=== PATIENT | male | born 1980 | race Caucasian/White ===

== ENCOUNTER 2021-01-11 13:32 | Observation (INO) | payer SELFPAY ==
[2021-01-11 14:51] VITALS: BP 122/89; PULSE 103; RESP 16; TEMP 37.2; O2SAT 96; BMI 22.2
[2021-01-11 15:10] LABS: Basophils % 0.2 %; Eosinophils % 0.2 %; Hematocrit 51.1 % (42.0-52.0); Hemoglobin 18.8 g/dL (11.7-16.6); Lymphocytes # 2.3 10^3/uL (0.8-4.8); Lymphocytes % 14.2 %; Mean Corpuscular HGB Conc 36.8 g/dL (30.0-36.0); Mean Corpuscular Volume 87.1 fL (80-94); Mean Platelet Volume 9.8 fL (7.4-10.4); Monocytes # 1.9 10^3/uL (0.2-0.9); Monocytes % 11.7 %; Neutrophils # 11.94 10^3/uL (1.8-7.7); Neutrophils % 73.5 %; Nucleated Red Blood Cells % 0 %; Platelet Count 316 10^3/cmm (130-400); Red Blood Count 5.87 10^6/uL (4.1-5.3); Red Cell Distribution Width 12.5 % (12.1-15.1); White Blood Count 16.3 10^3/uL (4.0-10.0)
[2021-01-11 15:24] LABS: Alanine Aminotransferase 14 U/L (0-41); Albumin Level 5.1 g/dL (3.5-5.2); Alkaline Phosphatase 94 IU/L (40-130); Anion Gap 16.9 (5-19); Aspartate Amino Transferase 12 U/L (0-40); Blood Urea Nitrogen 20 mg/dL (6-20); Calcium 9.8 mg/dL (8.5-10.5); Carbon Dioxide 32 mmol/L (22-29); Chloride 82 mmol/L (98-107); Glomerular Filtration Rate 94.4 mL/min (90-130); Glucose 110 mg/dL (65-115); Osmolality Calculated 269 mOsm/kg (285-295); Sodium 128 mmol/L (136-145); Total Bilirubin 0.9 mg/dL (0.15-1.2); Total Protein 8.1 g/dL (6.6-8.7)
[2021-01-11 15:25] LABS: Lactic Sepsis W/Reflex 1.2 mmol/L (0.5-2.2)
[2021-01-11 15:31] LABS: Potassium 2.9 mmol/L (3.5-5.1)
[2021-01-11 16:01] LABS: Magnesium 2.4 mg/dL (1.7-2.3)
--- NOTE | 2021-01-11 16:37 | CTR_ITS ---
PROCEDURE INFORMATION: Exam: CT Abdomen And Pelvis With Contrast Exam date and time: 01/11/2021 5:08 PM Age: 40 years old Clinical indication: Nausea and vomiting; Abdominal pain; Prior surgery; Surgery type: Gb, appy; Additional info: Abd pain TECHNIQUE: Imaging protocol: Computed tomography of the abdomen and pelvis with contrast. Radiation optimization: All CT scans at this facility use at least one of these dose optimization techniques: automated exposure control; mA and/or kV adjustment per patient size (includes targeted exams where dose is matched to clinical indication); or iterative reconstruction. Contrast material: OMNI 300; Contrast volume: 95 ml; Contrast route: INTRAVENOUS (IV); COMPARISON: No relevant prior studies available. RADIATION DOSE METRICS: Total DLP (mGy-cm): 922.29 FINDINGS: Lungs: The lung bases appear unremarkable. Liver: The liver is unremarkable in appearance. Gallbladder and bile ducts: The gallbladder is surgically absent. No biliary dilatation. Pancreas: The pancreas is normal in appearance. No pancreatic duct dilatation. Spleen: Calcified granulomas are noted in the spleen. Adrenal glands: Unremarkable. No mass. Kidneys and ureters: 7 mm simple appearing cyst upper pole right kidney. No solid renal masses. No hydronephrosis. Stomach and bowel: No acute gastric abnormality demonstrated. There are several fluid-filled small bowel loops in the lower abdomen/pelvis with mucosal enhancement and slight stranding of the adjacent mesenteric fat. This suggests mild nonspecific enteritis. No bowel obstruction noted. No acute abnormality/inflammatory change of the colon. Appendix: Patient is status post appendectomy by history. Intraperitoneal space: No pneumoperitoneum. No significant fluid collection. Vasculature: The aorta is unremarkable as demonstrated. Lymph nodes: No pathologically enlarged lymph nodes are demonstrated. Urinary bladder: Urinary bladder is unremarkable as demonstrated. Reproductive: Unremarkable as visualized. Bones/joints: No fracture or other acute osseous abnormality. Soft tissues: The soft tissues appear unremarkable. CT/CT abdomen pelvis w con* [id number] IMPRESSION: 1. There are several fluid-filled small bowel loops in the lower abdomen/pelvis with mucosal enhancement and slight stranding of the adjacent mesenteric fat. This suggests mild nonspecific enteritis. No bowel obstruction noted. 2. No acute abnormality demonstrated of the solid organs. COMMENTS: Consistent with the [employer] [place] [employer]'s Incidental Findings Committee white paper (J Am Bessie Radiol 2018): Any incidental renal lesion less than 1 cm or classified as too small to characterize, or any incidental cystic renal lesion characterized as simple-appearing, is likely benign. No follow-up imaging is recommended for these lesions per consensus recommendations based on imaging criteria. Radiation Dose CTDIVOL = (mGy): DLP = 922.29 (mGy-cm)
--- NOTE | 2021-01-11 16:38 | ED_ITS ---
HPI - Abdominal Pain General: Chief Complaint: Abdominal Pain Stated Complaint: VOMITING, NO APPETITE, LETHARGIC Time Seen by Provider: 01/11/21 16:34 History of Present Illness: HPI narrative: This patient is a 40-year-old male states he lives in [place] presents to the emergency department complaining of mid abdominal pain. 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 Patient states he was last in the emergency department 1 month ago due to the pain did up having infection in his colon and had to get IV antibiotics. Patient states this has been going on for 2 to 3 days and having vomiting for 2 to 3 days. We will do medical evaluation treat as needed. MD elicited complaint: abdominal pain Associated Symptoms: Reports nausea and vomiting; Denies chills, dysuria and fever(s) Review of Systems General: Reports: 10 or more systems reviewed and unremarkable except in HPI and below Const: Denies: fever(s), chills, body aches or fatigue Eyes: Denies: change in vision or blurry vision ENMT: Denies: throat pain, hoarseness or mouth pain Card: Denies: chest pain, palpitations, irregular heart rhythm, edema, swelling of feet/ankles or lightheadedness Resp: Denies: dyspnea, productive cough, non-productive cough, wheezing or pain on inspiration GI: Reports: abdominal pain, nausea and vomiting : Denies: flank pain, dysuria, urinary frequency, urinary urgency or urinary hesitancy Musc: Denies: neck pain, back pain, extremity pain, extremity swelling, joint pain, joint swelling, joint redness, joint warmth or limited range of motion Skin/Breast: Denies: rash, pruritus, erythema or skin tenderness Neuro: Denies: headache(s), numbness in extremities or weakness in extremities Psych: Denies: anxiety or depression Physical Exam Const: COMMON NORMALS: no acute distress, average body habitus, patient oriented x3, no limitations, healthy appearing, alert and well nourished HENMT: COMMON NORMALS: normocephalic, atraumatic, hearing grossly normal bilaterally, external ears normal, EAC's normal, TM's normal bilaterally, Normal external nose present, Normal nasal mucous membranes and turbinates present, moist oral mucous membranes, oropharynx normal, dentition normal and gingiva normal HEAD & SCALP: normocephalic and atraumatic NOSE: Normal external nose present and Normal nasal mucous membranes and turbinates present EXTERNAL EAR: Yes external ears normal EXTERNAL AUDITORY CANAL: EAC's normal TYMPANIC MEMBRANE: TM's normal bilaterally Neck/C-Spine: COMMON NORMALS: full ROM, no lymphadenopathy, supple, no meningeal signs, no JVD, Thyroid normal and No carotid bruits THYROID: Thyroid normal Chest: COMMONS NORMALS: normal inspection of the chest, normal palpation of entire chest wall, normal inspection of the breasts and normal palpation of the breasts Breast/axilla inspection: Yes normal inspection of the breasts BREAST/AXILLA PALPATION: Yes normal palpation of the breasts Resp: COMMON NORMALS: normal respiratory effort, No retractions, No use of accessory muscles, clear to auscultation bilaterally and percussion normal AUSCULTATION: clear to auscultation bilaterally PERCUSSION: percussion normal Cardio: COMMON NORMALS: no JVD, regular rate, regular rhythm, S1 normal heart sound present, S2 normal heart sound present, No gallops present (Cardio), No clicks present (Cardio), No murmurs present (Cardio), No rub (Cardio) and Peripheral pulses 2+ throughout RATE: regular rate RHYTHM: regular rhythm HEART SOUNDS: S1 normal heart sound present and S2 normal heart sound present PERIPHERAL PULSES: Peripheral pulses 2+ throughout GI: COMMON NORMALS: Normal to inspection, nondistended, normoactive bowel sounds present, Soft to palpation, No hepatosplenomegaly present, no masses and no bruits PALPATION: Yes Soft to palpation, Yes Tenderness to palpation present (GI) and Yes No hepatosplenomegaly present : COMMON NORMALS: Yes no CVA tenderness BLADDER/KIDNEY EXAM: Yes no CVA tenderness Back/Pelvis: COMMON NORMALS: no CVA tenderness, thoracic and lumbar spine normal to inspection, no thoracic nor lumbar tenderness, thoraco-lumbar ROM normal and straight leg raise negative bilaterally Extremity: COMMON NORMALS: normal to inspection, full ROM, capillary refill normal, no joint enlargement, no clubbing, cyanosis or edema, no calf tenderness and no pedal edema Neuro: COMMON NORMALS: patient oriented x3 SENSORIUM/ORIENTATION: Yes alert MENINGEAL SIGNS: Yes no meningeal signs Course Reevaluation(s): Reevaluation #1: Patient appears to have acute gastro enteritis. Hyponatremia and hypokalemia. Patient will need continued IV fluids. Patient will also get p.o. potassium. Patient be admitted to observation. With IV Flagyl.. Nausea vomiting abdominal pain for the past 3 days. Will contact hospitalist for admission. Time: 17:52 Consultations: Consultation #1: I did discuss at length with Dr. Pickard he is agreeable to admit the patient due to gastroenteritis dehydration abdominal pain hypokalemia and hyponatremia. He will see patient write additional orders. He will follow up on pending urinalysis. Time: 18:02 Vital Signs: Vital signs: Vital Signs Temperature 99.0 F 01/11/21 14:51 Pulse Rate 73 01/11/21 17:27 Respiratory Rate 15 01/11/21 17:27 Blood Pressure 137/85 01/11/21 17:27 Pulse Oximetry 97 01/11/21 17:27 MDM - Abdominal Pain Lab Data: Attestation: I reviewed the patient's lab results. Labs: Lab Results 01/11/21 01/11/21 01/11/21 Range/Units 14:35 14:55 14:55 WBC 16.3 H (4.0-10.0) 10^3/ uL RBC 5.87 H (4.1-5.3) 10^6/u L Hgb 18.8 H (11.7-16.6) g/dL Hct 51.1 (42.0-52.0) % MCV 87.1 (80-94) fL MCH 32.0 (28.0-34.0) pg MCHC 36.8 H (30.0-36.0) g/dL RDW 12.5 (12.1-15.1) % Plt Count 316 (130-400) 10^3/c mm MPV 9.8 (7.4-10.4) fL Neut % (Auto) 73.5 % Lymph % (Auto) 14.2 % Trigg % (Auto) 11.7 % Eos % (Auto) 0.2 % Baso % (Auto) 0.2 % Neut # (Auto) 11.94 H (1.8-7.7) 10^3/u L Lymph # (Auto) 2.3 (0.8-4.8) 10^3/u L Trigg # (Auto) 1.9 H (0.2-0.9) 10^3/u L Eos # (Auto) 0.0 (0.0-0.8) 10^3/u L Baso # (Auto) 0.0 (0.0-0.1) 10^3/u L Nucleated RBC % (a uto) 0 % Nucleated RBCs # 0.0 /100WBC Sodium 128 L (136-145) mmol/L Potassium 2.9 L (3.5-5.1) mmol/L Chloride 82 L (98-107) mmol/L Carbon Dioxide 32 H (22-29) mmol/L Anion Gap 16.9 (5-19) BUN 20 (6-20) mg/dL Creatinine 0.9 (0.7-1.2) mg/dL GFR Calculation 94.4 (90-130) mL/min Glucose 110 (65-115) mg/dL Calculated Osmolal ity 269 L (285-295) mOsm/k g Lactic Acid (0.5-2.2) mmol/L Calcium 9.8 (8.5-10.5) mg/dL Magnesium (1.7-2.3) mg/dL Total Bilirubin 0.9 (0.15-1.2) mg/dL AST 12 (0-40) U/L ALT 14 (0-41) U/L Alkaline Phosphata se 94 (40-130) IU/L Total Protein 8.1 (6.6-8.7) g/dL Albumin 5.1 (3.5-5.2) g/dL Globulin 3.0 (1.3-4.6) g/dL Lipase 21 (13-60) U/L 01/11/21 01/11/21 Range/Units 14:55 14:55 WBC (4.0-10.0) 10^3/ uL RBC (4.1-5.3) 10^6/u L Hgb (11.7-16.6) g/dL Hct (42.0-52.0) % MCV (80-94) fL MCH (28.0-34.0) pg MCHC (30.0-36.0) g/dL RDW (12.1-15.1) % Plt Count (130-400) 10^3/c mm MPV (7.4-10.4) fL Neut % (Auto) % Lymph % (Auto) % Trigg % (Auto) % Eos % (Auto) % Baso % (Auto) % Neut # (Auto) (1.8-7.7) 10^3/u L Lymph # (Auto) (0.8-4.8) 10^3/u L Trigg # (Auto) (0.2-0.9) 10^3/u L Eos # (Auto) (0.0-0.8) 10^3/u L Baso # (Auto) (0.0-0.1) 10^3/u L Nucleated RBC % (a uto) % Nucleated RBCs # /100WBC Sodium (136-145) mmol/L Potassium (3.5-5.1) mmol/L Chloride (98-107) mmol/L Carbon Dioxide (22-29) mmol/L Anion Gap (5-19) BUN (6-20) mg/dL Creatinine (0.7-1.2) mg/dL GFR Calculation (90-130) mL/min Glucose (65-115) mg/dL Calculated Osmolal ity (285-295) mOsm/k g Lactic Acid 1.2 (0.5-2.2) mmol/L Calcium (8.5-10.5) mg/dL Magnesium 2.4 H (1.7-2.3) mg/dL Total Bilirubin (0.15-1.2) mg/dL AST (0-40) U/L ALT (0-41) U/L Alkaline Phosphata se (40-130) IU/L Total Protein (6.6-8.7) g/dL Albumin (3.5-5.2) g/dL Globulin (1.3-4.6) g/dL Lipase (13-60) U/L Imaging Data ^: CT Abd/Pel: Attestation: I personally reviewed and interpreted this imaging study as follo ws: Radiologist's impression: IMPRESSION: 1. There are several fluid-filled small bowel loops in the lower abdomen/pelvis with mucosal enhancement and slight stranding of the adjacent mesenteric fat. This suggests mild nonspecific enteritis. No bowel obstruction noted. 2. No acute abnormality demonstrated of the solid organs. Discharge Plan Discharge Patient Disposition: Placed in Observation Clinical Impression: Gastroenteritis, Abdominal pain, Acute hyponatremia, Acute hypokalemia, Dehydration Condition: Stable Prescriptions: No Action Tylenol 325 mg Tablet 325 mg PO QID PRN (Reason: Pain) RF: 0 ibuprofen 200 mg Tablet 200 - 400 mg PO Q6H PRN (Reason: pain/fever) RF: 0 Patient Instructions: Abdominal Pain (ED) Coding Level of Care Code ED Manufacturing Maintenance Technician for [facility] Exam Comprehensive
[2021-01-11] MEDS: iohexol 300 mg/mL 100 mL Btl IV (17:16)
[2021-01-11] MEDS: ondansetron 2 mg/ML SDV 2 mL 4 MG IVP ×2 (17:24→22:17)
[2021-01-11] MEDS: sodium chloride 0.9% 1,000 ML 999 ML IV ×2 (17:24→18:10)
[2021-01-11] MEDS: ketorolac 30 mg/mL INJ 15 MG IVP (17:24)
[2021-01-11 17:27] VITALS: BP 137/85; PULSE 73; RESP 15; O2SAT 97
[2021-01-11 17:45] LABS: Lipase 21 U/L (13-60)
[2021-01-11] MEDS: sodium chloride 0.9% 1,000 ML 100 ML IV (18:10)
[2021-01-11] MEDS: potassium chloride ER 20 mEq Tablet 40 MEQ PO (18:10)
[2021-01-11] MEDS: metroNIDAZOLE IV 500 MG/100 ML PREMIX 100 MG IV (18:11)
[2021-01-11 18:27] VITALS: BP 141/80; PULSE 70; RESP 19; O2SAT 97
[2021-01-11 18:54] LABS: Add Urine Microscopic? YES; Bilirubin Urine Neg (Negative); Blood Urine Neg (Negative); Glucose Urine UA Norm (Normal); Ketones Urine Negative (Negative); Leukocyte Esterase Urine Negative (Negative); Nitrate Urine Negative (Negative); Protein Urine 2+ (Negative); Urine Appearance Hazy (CLEAR); Urine Color Dark Yellow (Yellow); Urobilinogen Urine 4 mg/dL (Negative); pH Urine 5 (5-7)
[2021-01-11 19:00] LABS: Amphetamines Screen Urine Negative (Negative); Barbiturates Screen Urine Negative (Negative); Benzodiazepines Screen Urine Negative (Negative); Cocaine Screen Urine Negative (Negative); Opiate Screen Urine Negative (Negative); PCP Screen Urine Negative (Negative); THC Screen Urine Positive (Negative)
[2021-01-11 19:06] LABS: Add Urine Culture? No; Bacteria Urine TRACE /hpf; Hyaline Casts Urine 0-4 /lpf; Mucus Urine 2+ /hpf; RBC Urine 0-4 /hpf (0-2); Squamous Epithelial Cell Urine 0-4 /hpf (0-5)
[2021-01-11 19:10] VITALS: BP 138/96; PULSE 68; RESP 12; O2SAT 93
--- NOTE | 2021-01-11 19:14 | P.HP_ITS ---
Providers/Chief Complaint Admitting Physician: Cisco Pickard MD Chief Complaint: VOMITING, NO APPETITE, LETHARGIC History of Present Illness 40-year-old male with PMH of abnormal SMA came in with c/o nausea as well as intractable vomiting started last Sunday,he is not able to keep anything down because of his vomiting, he is also complaining of mild generalized abdominal pain.Deny any diarrhea,has not passed stool for the few days. Upon arrival in the ER he was worked up for above mention complain. CT abdomen pelvis w con: There are several fluid-filled small bowel loops in the lower abdomen/pelvis with mucosal enhancement and slight stranding of the adjacent mesenteric fat. This suggests mild nonspecific enteritis. No bowel obstruction noted. No acute abnormality demonstrated of the solid organs. Pertinent Labs : WBC: 16.3T, H/H: 18/51, Na: 128, k: 2.9 Utox:Marijuana : Positive Review of Systems Const: Denies: fever(s), chills or body aches Card: Denies: palpitations or edema Resp: Denies: dyspnea, productive cough, wheezing or pain on inspiration : Denies: flank pain or difficulty urinating Musc: Denies: back pain, extremity pain or extremity swelling Neuro: Denies: headache(s), difficulty walking or confusion Medications/Allergies Home Medications Medication Instructions Recorded Confirmed Last Taken Type acetaminophen [Tylenol] 325 mg PO QID PRN 01/11/21 01/11/21 Unknown History ibuprofen 200 - 400 mg PO Q6H PRN 01/11/21 01/11/21 Unknown History Allergies Allergy/AdvReac Type Severity Reaction Status Date / Time peas Allergy ALGY-Swell Verified 01/11/21 14:58 Lip/Tongue/Throat Vitals/I&O/Wt Last Vital Signs Temp 99.0 F 01/11/21 14:51 Pulse 70 01/11/21 18:27 Resp 19 H 01/11/21 18:27 BP 141/80 01/11/21 18:27 Pulse Ox 97 01/11/21 18:27 01/11/21 01/11/21 01/11/21 06:59 14:59 22:59 Intake Total 1000 / 1000 Balance 1000 / 1000 Weight last 48 hrs Weight 70.307 kg Physical Exam Const: COMMON NORMALS: patient oriented x3 HENMT: COMMON NORMALS: normocephalic, atraumatic, hearing grossly normal bilaterally and external ears normal HEAD & SCALP: normocephalic and atraumatic EXTERNAL EAR: Yes external ears normal Eye: COMMON NORMALS: no scleral icterus GENERAL EYE: appearance normal, both eyes and all related structures Chest: COMMONS NORMALS: normal inspection of the chest and normal palpation of entire chest wall CHEST: Yes Symmetrical chest wall rise Resp: COMMON NORMALS: normal respiratory effort, No retractions, No use of accessory muscles and clear to auscultation bilaterally EFFORT & INSPECTION: Yes symmetric chest movement AUSCULTATION: clear to auscultation bilaterally Cardio: COMMON NORMALS: regular rate, regular rhythm, S1 normal heart sound present, S2 normal heart sound present, No gallops present (Cardio), No murmurs present (Cardio), No rub (Cardio) and Peripheral pulses 2+ throughout RATE: regular rate RHYTHM: regular rhythm HEART SOUNDS: S1 normal heart sound present and S2 normal heart sound present PERIPHERAL PULSES: Peripheral pulses 2+ throughout GI: COMMON NORMALS: Normal to inspection, nondistended, normoactive bowel sounds present, Soft to palpation, non-tender, No hepatosplenomegaly present and no masses AUSCULTATION: Yes normoactive bowel sounds PALPATION: Yes Soft to palpation and Yes No hepatosplenomegaly present RECTAL EXAM: Yes deferred Extremity: COMMON NORMALS: no clubbing, cyanosis or edema and no pedal edema Neuro: COMMON NORMALS: patient oriented x3 Data : 01/11/21 14:55 01/11/21 14:55 A&P Assessment and plan (1) Gastroenteritis: I.V Hydration with Ns @ 100cc/hr Zofran Status: Acute (2) Acute hyponatremia: Hypovolemic Hyponatremia Continue I.V Hydration Status: Acute (3) Acute hypokalemia: Replace and monitor Status: Acute (4) Dehydration: Status: Acute Attestations Medical Necessity Statement*: Patient needs to be in hospital for the management of gastroenteritis. Anticipated LOS Less then 2 midnights. Coding Level of Care Code Acute Leaflet Distributor for [facility] T[place]anie Diagnoses Gastroenteritis K52.9 Acute hyponatremia E87.1 Acute hypokalemia E87.6 Dehydration E86.0
[2021-01-11 20:00] VITALS: BP 151/94; PULSE 78; RESP 18; TEMP 36.7; O2SAT 98
[2021-01-11 20:14] VITALS: BP 126/67; PULSE 72; RESP 14; O2SAT 98
[2021-01-11] MEDS: sodium chlor 0.9% + KCl 20 mEq 20 MEQ/1,000 ML BAG 100 MEQ IV (22:10)
[2021-01-12] VITALS (7 sets, daily range): BP systolic 131–164; BP diastolic 78–97; PULSE 54–110; RESP 16–18; TEMP 36.4–36.8; O2SAT 98–99
[2021-01-12 06:00] LABS: Basophils % 0.1 %; Eosinophils % 0.4 %; Hematocrit 45.6 % (42.0-52.0); Hemoglobin 16.3 g/dL (11.7-16.6); Lymphocytes # 1.8 10^3/uL (0.8-4.8); Lymphocytes % 16.8 %; Mean Corpuscular HGB Conc 35.7 g/dL (30.0-36.0); Mean Corpuscular Hemoglobin 31.8 pg (28.0-34.0); Mean Corpuscular Volume 88.9 fL (80-94); Mean Platelet Volume 10.2 fL (7.4-10.4); Monocytes # 1.4 10^3/uL (0.2-0.9); Monocytes % 13.3 %; Neutrophils # 7.25 10^3/uL (1.8-7.7); Nucleated Red Blood Cells % 0 %; Platelet Count 265 10^3/cmm (130-400); Red Blood Count 5.13 10^6/uL (4.1-5.3); Red Cell Distribution Width 12.6 % (12.1-15.1); White Blood Count 10.5 10^3/uL (4.0-10.0)
[2021-01-12] MEDS: sodium chlor 0.9% + KCl 20 mEq 20 MEQ/1,000 ML BAG 100 MEQ IV (06:08)
[2021-01-12 06:28] LABS: Anion Gap 11.5 (5-19); Blood Urea Nitrogen 17 mg/dL (6-20); Calcium 8.7 mg/dL (8.5-10.5); Carbon Dioxide 28 mmol/L (22-29); Chloride 95 mmol/L (98-107); Glomerular Filtration Rate 108.2 mL/min (90-130); Glucose 110 mg/dL (65-115); Osmolality Calculated 274 mOsm/kg (285-295); Potassium 3.5 mmol/L (3.5-5.1); Sodium 131 mmol/L (136-145)
[2021-01-12 06:29] LABS: Lactic Sepsis W/Reflex 1.1 mmol/L (0.5-2.2)
[2021-01-12] MEDS: pantoprazole DR 40 mg Tablet PO (10:37)
[2021-01-12] MEDS: bisacodyl 5 mg Tablet 10 MG PO (10:37)
--- NOTE | 2021-01-12 10:39 | PC.CHAP ---
Pastoral Care Encounter/Spiritual Assessment Type of Contact [] Declined wet wheeler visit [] Patient/Family/Request visit [] Outpatient visit [] Follow-up visit [] Physician referral [] Code/Alert x[x] Routine visit [] Staff referral [] Actively dying [] Patient sleeping [] Family support [] [] Out of room [] Palliative care [] [] Receiving care in room [] Pre-surgical visit [] Trauma [] Long length of stay [] ICU visit [] Other: Relational/Emotional Strength [x] Patient feels connected with others/family/visitors/staff [] Distress [] Loneliness/isolation [] Abandonment Spirituality of Patient [x] Person of Lor[place] [x] Attends Bahai of their [place] [x] Believes in Prayer [] Reads Bible or Yazidi materials [] There are Spiritual issues to be addressed Garment Alteration Examiner Interventions [x] Prayer [x] Active listening x[x] Non-anxious presence [] Spiritual/emotional support [] Crisis/trauma care [] Spiritual counseling [] Bereavement support [] Provided bereavement packet [] Provided Bible/devotional materials [] Provided toy/stuffed animal, coloring book to patient or family member [] Provided Communion [] Anointing/[place] [] Salvation [] Completed spiritual assessment [] Other: Impact on Illness or Injury [] Angry [] Fearful [] Anxious [] Often cries [] Exhaustion [] Unable to work [] Unable to attend nondenominational [] Unable to walk/stand [] Unable to read [] Unable to drive [] Unable to eat/drink [] Unable to sleep [] Unable to be with family [] Patient intubated [] Other: Summary patient feeling better Time spent with patient 10 min
--- NOTE | 2021-01-12 15:30 | PC.NURSE ---
Reported pts vitals to his nurse
[2021-01-12] MEDS: oxyCODONE-APAP 5-325 mg Tablet 1 TAB PO (17:15)
--- NOTE | 2021-01-12 17:26 | P.DS_ITS ---
Discharge Providers Date of Admission: 01/11/21 18:04 Date of Discharge: January 12, 2021 Attending Provider at Admission: Cisco Pickard MD Attending Provider at Discharge: Cisco Pickard MD Diagnoses at Discharge Discharge Diagnosis (1) Gastroenteritis: Reason for Visit Reason for Visit: VOMITING, NO APPETITE, LETHARGIC Hospital Course Hospital Course 40-year-old male with PMH of abnormal SMA came in with c/o nausea as well as intractable vomiting started last Sunday,he is not able to keep anything down because of his vomiting, he is also complaining of mild generalized abdominal pain.Deny any diarrhea,has not passed stool for the few days. Upon arrival in the ER he was worked up for above mention complain. CT abdomen pelvis w con: There are several fluid-filled small bowel loops in the lower abdomen/pelvis with mucosal enhancement and slight stranding of the adjacent mesenteric fat. This suggests mild nonspecific enteritis. No bowel obstruction noted. No acute abnormality demonstrated of the solid organs. Pertinent Labs : WBC: 16.3T, H/H: 18/51, Na: 128, k: 2.9 Utox:Marijuana : Positive. He was admitted for the management of gastroenteritis,de hydration,hypokalemia,and hypovolemic hyponatremia.He was kept on i. hydration as well as zofran and on pain control.He responded well to the above medical management,and at the time of discharge he was tolerating po diet well,nausea,vomiting has resolved,abdominal pain has resolved.Dehydration was resolved.He responded well to the above medical management and was discharged in stable condition. Physical Exam Const: COMMON NORMALS: patient oriented x3 HENMT: COMMON NORMALS: normocephalic, atraumatic, hearing grossly normal bilaterally and external ears normal HEAD & SCALP: normocephalic and atraumatic EXTERNAL EAR: Yes external ears normal Eye: COMMON NORMALS: no scleral icterus GENERAL EYE: appearance normal, both eyes and all related structures Chest: COMMONS NORMALS: normal inspection of the chest and normal palpation of entire chest wall CHEST: Yes Symmetrical chest wall rise Resp: COMMON NORMALS: normal respiratory effort, No retractions, No use of accessory muscles and clear to auscultation bilaterally EFFORT & INSPECTION: Yes symmetric chest movement AUSCULTATION: clear to auscultation bilaterally Cardio: COMMON NORMALS: regular rate, regular rhythm, S1 normal heart sound present, S2 normal heart sound present, No gallops present (Cardio), No murmurs present (Cardio), No rub (Cardio) and Peripheral pulses 2+ throughout RATE: regular rate RHYTHM: regular rhythm HEART SOUNDS: S1 normal heart sound present and S2 normal heart sound present PERIPHERAL PULSES: Peripheral pulses 2+ throughout GI: COMMON NORMALS: Normal to inspection, nondistended, normoactive bowel sounds present, Soft to palpation, non-tender, No hepatosplenomegaly present and no masses AUSCULTATION: Yes normoactive bowel sounds PALPATION: Yes Soft to palpation and Yes No hepatosplenomegaly present RECTAL EXAM: Yes deferred Extremity: COMMON NORMALS: no clubbing, cyanosis or edema and no pedal edema Neuro: COMMON NORMALS: patient oriented x3 Discharge Data Data Completed and Pending: Completed Studies During Hospitalization Category Date Time Status CT abdomen pelvis w con* [id number] Stat Cat Scan 01/11/21 16:37 Completed Pending at discharge Category Date Time Status Basic Metabolic P epi AM LABS Lab 01/13/21 04:00 Ordered Basic Metabolic P epi AM LABS Lab 01/14/21 04:00 Ordered Complete Blood Co unt w/Auto AM LABS Lab 01/13/21 04:00 Ordered Complete Blood Co unt w/Auto AM LABS Lab 01/14/21 04:00 Ordered Labs from last 24 hours 01/12/21 01/12/21 01/12/21 05:25 05:25 05:25 WBC 10.5 H RBC 5.13 Hgb 16.3 Hct 45.6 MCV 88.9 MCH 31.8 MCHC 35.7 RDW 12.6 Plt Count 265 MPV 10.2 Neut % (Auto) 69.0 Lymph % (Auto) 16.8 Frontier % (Auto) 13.3 Eos % (Auto) 0.4 Baso % (Auto) 0.1 Neut # (Auto) 7.25 Lymph # (Auto) 1.8 Frontier # (Auto) 1.4 H Eos # (Auto) 0.0 Baso # (Auto) 0.0 Nucleated RBC % (a uto) 0 Nucleated RBCs # 0.0 Sodium 131 L Potassium 3.5 Chloride 95 L Carbon Dioxide 28 Anion Gap 11.5 BUN 17 Creatinine 0.8 GFR Calculation 108.2 Glucose 110 Calculated Osmolal ity 274 L Lactic Acid 1.1 Calcium 8.7 Lipase Urine Color Urine Appearance Urine pH Ur Specific Gravit y Urine Protein Urine Glucose (UA) Urine Ketones Urine Blood Urine Nitrate Urine Bilirubin Urine Urobilinogen Ur Leukocyte Fatuma ase Urine RBC Urine WBC Ur Squamous Epith Cells Amorphous Sediment Urine Bacteria Hyaline Casts Urine Mucus Urine Opiates Scre en Ur Barbiturates Sc reen Ur Phencyclidine S crn Ur Amphetamines Sc reen U Benzodiazepines Scrn Urine Cocaine Scre en U Marijuana (THC) Screen 01/11/21 01/11/21 01/11/21 17:25 17:25 14:35 WBC RBC Hgb Hct MCV MCH MCHC RDW Plt Count MPV Neut % (Auto) Lymph % (Auto) Frontier % (Auto) Eos % (Auto) Baso % (Auto) Neut # (Auto) Lymph # (Auto) Frontier # (Auto) Eos # (Auto) Baso # (Auto) Nucleated RBC % (a uto) Nucleated RBCs # Sodium Potassium Chloride Carbon Dioxide Anion Gap BUN Creatinine GFR Calculation Glucose Calculated Osmolal ity Lactic Acid Calcium Lipase 21 Urine Color Dark yellow Urine Appearance Hazy A Urine pH 5 Ur Specific Gravit y 1.020 Urine Protein 2+ H Urine Glucose (UA) Norm Urine Ketones Negative Urine Blood Neg Urine Nitrate Negative Urine Bilirubin Neg Urine Urobilinogen 4 H Ur Leukocyte Fatuma ase Negative Urine RBC 0-4 H Urine WBC None Ur Squamous Epith Cells 0-4 H Amorphous Sediment Not Reportable Urine Bacteria Trace Hyaline Casts 0-4 H Urine Mucus 2+ Urine Opiates Scre en Negative Ur Barbiturates Sc reen Negative Ur Phencyclidine S crn Negative Ur Amphetamines Sc reen Negative U Benzodiazepines Scrn Negative Urine Cocaine Scre en Negative U Marijuana (THC) Screen Positive H Vitals: Last Vital Signs Temp 98.2 F 01/12/21 15:29 Pulse 54 L 01/12/21 15:29 Resp 18 01/12/21 17:15 BP 164/91 01/12/21 15:29 Pulse Ox 99 01/12/21 15:29 Discharge Plan Discharge Patient Disposition: Home Condition: Stable Prescriptions: Continued Tylenol 325 mg Tablet 325 mg PO QID PRN (Reason: Pain) RF: 0 ibuprofen 200 mg Tablet 200 - 400 mg PO Q6H PRN (Reason: pain/fever) RF: 0 Discharge Orders: Discharge Order (Routine); Ordered 01/12/21 Ordered By: Cisco Pickard Discharge Diet: Usual diet Discharge Activity: Resume usual activity Patient Instructions: Gastritis (GEN), Abdominal Pain (ED) Activity Restrictions/Additional Instructions: PLEASE MAKE APPOINTMENT WITH YOUR DOCTOR FOR HOSPITAL FOLLOWUP Discharge Attestations Time Spent in Discharge Care*: less than 30 min Specific Discharge Activities: educating patient, educating and/or supporting family/caregiver, discussing with piano case maker/social workers/dc planners, documenting/other paperwork and evaluating patient/reviewing data Status at Discharge: Cognitive status at discharge: cognitively intact , Behavioral status at discharge: cooperative , Functional status at discharge: independent ambulation Overall status at discharge: patient is back to baseline Quality Metrics Clinical Quality Measures During this hospital stay, did patient experience: None Coding Level of Care Code Acute Chg FW DC note Diagnoses Gastroenteritis K52.9
== END 2021-01-12 18:50 | disposition home or self-care (01) ==
LOC: ER 18:03 → MEDSURG 19:03
PROVIDERS: Physician Assistant; Admitting Provider Internal Medicine; Emergency Provider Emergency Medicine; Visit Provider Internal Medicine
DX: K52.9 Noninfective gastroenteritis and colitis, unspecified (principal); E87.1 Hypo-osmolality and hyponatremia; E87.6 Hypokalemia; E86.0 Dehydration
CPT/HCPCS: 36415; 74177; 80048; 80053; 80306; 81001; 83605; 83690; 83735; 85025; 96365; 96366; 96367; 96375; 99285; G0378; J1885; J2405; J7030; Q9967; S0030